=== PATIENT | female | born 1940 | race Caucasian/White ===

== ENCOUNTER 2019-10-29 13:11 | Emergency (ER) | payer OTHER ==
[~2019-10-29] VITALS: Ht 162.6 cm; Wt 74.8 kg
[~2019-10-29 13:11] MED LIST: ACETAMINOPHEN-1 EAC1 PO; CRESTOR10 MG PO; UNKNOWN BP MED
[2019-10-29 13:49] LABS: URINE BILIRUBIN NEGATIVE (Negative); URINE BLOOD NEGATIVE (Negative); URINE CLARITY CLEAR; URINE COLOR YELLOW; URINE GLUCOSE-RANDOM* NEGATIVE (Negative); URINE KETONES NEGATIVE (Negative); URINE LEUKOCYTES-REFLEX NEGATIVE (Negative); URINE NITRITE-REFLEX NEGATIVE (Negative); URINE PROTEIN (DIPSTICK) NEGATIVE (Negative); URINE SPECIFIC GRAVITY 1.015 (1.005-1.035); URINE UROBILINOGEN 0.2 E.U./dl (0.2-1.0)
[2019-10-29 14:37] LABS: ABSOLUTE NEUTROPHILS 4.8 thou/uL (1.4-8.2); BASOPHILS 0.6 % (0.0-2.0); EOSINOPHILS 0.4 % (0.0-3.0); HEMATOCRIT 47.6 % (37.0-47.0); HEMOGLOBIN 16.3 gm/dL (12.0-15.0); LYMPHOCYTES 19.7 % (24.0-44.0); MCH 29.1 pg (26.0-34.0); MCHC 34.3 g/dL (28.0-37.0); MCV 84.7 fL (80.0-100.0); MONOCYTES 7.5 % (1.0-8.0); PLATELET COUNT 303 thou/uL (150-400); POLYS 71.8 % (36.0-66.0); RBC 5.62 mil/uL (4.20-5.00); WBC 6.7 thou/uL (4.0-11.0)
[2019-10-29 14:45] LABS: CALCIUM 10.5 mg/dL (8.5-10.1); CREATININE 0.6 mg/dL (0.6-1.0)
[2019-10-29 14:50] LABS: ALBUMIN 4.5 g/dL (3.4-5.0); TOTAL BILIRUBIN 0.7 mg/dL (<0.1-1.0); TOTAL PROTEIN 8.4 g/dL (6.4-8.2)
[2019-10-29] MEDS ORDERED: NORVASC 2.5 MG2.5 M1 PO (15:55)
[2019-10-29] MEDS ORDERED: ASA81BEC PO (15:55)
[2019-10-29] MEDS ORDERED: HYDROCHLOROTHIA25 M2 PO (15:55)
[2019-10-29] MEDS ORDERED: CALCIUM500 MG PO (15:56)
[2019-10-29] MEDS ORDERED: CARAFATE 1 GM TA1 G1 PO (16:52)
[2019-10-29] MEDS ORDERED: PEPCID40 MG PO (16:52)
[2019-10-29 17:00] VITALS: BP 130/61
== END 2019-10-29 17:00 | disposition home or self-care (01) ==
LOC: ER 13:11
PROVIDERS: Emergency Medicine
DX: K21.9 Gastro-esophageal reflux disease without esophagitis (principal); E11.9 Type 2 diabetes mellitus without complications; Z90.710 Acquired absence of both cervix and uterus